=== PATIENT | female | born 1970 ===

== ENCOUNTER 2018-11-22 06:00 | Day surgery (SDC) | payer OTHER ==
--- NOTE | 2018-11-21 20:56 | Pre-Procedure Note/Attestation ---
Pre-Procedure Note/Attestation Complete Prior to Procedure Planned Procedure: not applicable Procedure Narrative: Open Reduction Internal Fixation nasal fracture Indications for Procedure Pre-Operative Diagnosis: Nasal fracture Attestation I attest that I discussed the nature of the procedure; its benefits; risks and complications; and alternatives (and the risks and benefits of such alternatives ), prior to the procedure, with the patient (or the patient's legal reimbursement representative). I attest that, if there was a reasonable possibility of needing a blood transfusion, the patient (or the patient's legal reimbursement representative) was given the [facility] standardized written summary, pursuant to the [place] Blood Safety Act ([place] Health and Safety Code # 1645, as amended). I attest that I re-evaluated the patient just prior to the surgery and that there has been no change in the patient's H&P. EKG, CXR Yusef Morrow MD Nov 21, 2018 20:56
--- NOTE | 2018-11-21 20:57 | Discharge Instructions ---
Discharge Instructions Discharge Instructions Follow up with: next week-pthas appt already Diet: regular Resume Normal Activity?: No Activity: light activity Pneumonia Vaccine: pt refused vaccine Influenza Vaccine (Jul to Dec): pt refused vaccine Follow Up Orders Pt has printed instructions as well as post op meds. Return to Work/School on: Dec 05, 2018 For Surgical Patients Dressing Care: may change For Congestive Heart Failure Reminder Report to your physician any weight gain of 5 pounds or more in one week. Yusef Morrow MD Nov 21, 2018 20:57
--- NOTE | 2018-11-21 21:21 | History & Physical ---
History of Present Illness General Date patient seen: Nov 08, 2018 Time patient seen: 11:00 Present Illness Allergies: Coded Allergies: SULFA (SULFONAMIDE ANTIBIOTICS) (Verified Allergy, Severe, 11/21/18) swollen eyes,itching Medication History Scheduled Cyclobenzaprine Hcl* (Flexeril*), 10 MG ORAL ELENA, (Reported) Fluticasone Propionate (Flonase Allergy Relief), 2 SPRAYS NS BEDT, (Reported) Ibuprofen* (Motrin*), 800 MG ORAL BID, (Reported) Patient History History Provided By: Patient Healthcare decision maker Resuscitation status Advanced Directive on File Past Medical/Surgical History Past Medical/Surgical History: (1) (2) Post traumatic stress disorder (3) Diabetes mellitus Social History Social History: (1) Diabetes mellitus Review of Systems Review of Symptoms General ROS: no weight loss or fever Psychological ROS: no depression or mood changes, no memory loss Ophthalmic ROS: no visual changes or eye irritation ENT ROS: no nasal congestion, hearing loss, dizziness, does have nasal deformity. Allergy and Immunology ROS: no allergic symptoms or urticaria Hematological and Lymphatic ROS: no swollen glands, unusual bleeding or bruising Endocrine ROS: no polyuria, polydipsia, weight changes, temperature intolerance Respiratory ROS: no cough, shortness of breath, or wheezing Cardiovascular ROS: no chest pain or dyspnea on exertion Gastrointestinal ROS: denies abdominal pain, bright red blood in stool. Musculoskeletal ROS: no myalgias or arthralgias Neurological ROS: no TIA or stroke symptoms Dermatological ROS: no new or changing skin lesions, rashes or pruritis Physical Exam Physical Exam General appearance: alert, cooperative, no distress, appears stated age Head: Normocephalic, without obvious abnormality, atraumatic Eyes: conjunctivae/corneas clear. PERRL, EOM's intact. Fundi benign Throat: Lips, mucosa, and tongue normal. Teeth and gums normal Neck: supple, symmetrical, trachea midline, no adenopathy, thyroid: not enlarged, symmetric, no tenderness/mass/nodules, no carotid bruit and no JVD Lungs: clear to auscultation bilaterally Heart: regular rate and rhythm, S1, S2 normal, no murmur, click, rub or gallop Abdomen: soft, non-tender. Bowel sounds normal. No masses, no organomegaly Extremities: extremities normal, atraumatic, no cyanosis or edema Pulses: 2+ and symmetric Skin: Skin color, texture, turgor normal. No rashes or lesions Neurologic: Grossly normal 69, 148 lbs, BP 120/80, 98.3, HR 76 Resp 13 attached by PMD-EKG, CXR, Labs- Height (Feet): 6 Height (Inches): 1 Weight (Pounds): 168 Medications Current Medications Medications (Trade) Dose Ordered Sig/Melissa Route PRN Reason Start Time Stop Time Status Last Admin Dose Admin Cefazolin Sodium 1 gm/Dextrose 55 ml @ 110 mls/hr ONCE ONCE IV 11/22/18 07:15 11/22/18 07:44 Dexamethasone Sodium Phosphate (Decadron 4mg/ml vial) 8 mg ONCE ONCE IVP 11/22/18 07:30 11/22/18 07:31 Assessment/Plan Problem List: (1) Nasal bone fracture ICD Codes: S02.2XXA - Fracture of nasal bones, initial encounter for closed fracture SNOMED: [id number] Status: stable Assessment/Plan Nasal fracture causing deformity Stable for surgery. [facility] Hospital declaration OUTPATIENT: level of care is warranted for this patient because patient is a 48 year old with woman who presents with a nasal deformity secondary to an incident at work. Plan of care/treatment include outpatient ORIF nasal fracture. Patient care is expected to be an outpatient. Disposition: Once the patient is stable to leave the hospital, I anticipate the patient will likely be discharged to the following environment:home. Estimated discharge date: 11/22/18 I spent 70 minutes on this patient's case, and 90 minutes was dedicated to counseling and/or care coordination. Measure #130 The provider has documented, updated, or reviewed the patients current medication list and has documented it in the patients note. MEDICAL COMPLEXITY High complexity medical decision making (need 2/3 categories) Problem - need 4 points Acute/new problem with new plan for workup (4 points, 1 max) Acute/new problem without additional workup (3 points, 1 max) Unstable chronic problem actively being managed (2 point each, 2 max) Stable chronic problem actively being managed (1 point each, 2 max) Self-limited/transient process (constipation, muscle ache, etc) (1 point each , 2 max) Data - need 4 points Reviewed labs/imaging studies (1 points, 2 max) Independent review of imaging (EKG, xrays, etc) (2 points, 2 max) Discussed case with consult/other MD/RN (2 points, 2 max) High Risk - qualify if have one of the following: Severe exacerbation of acute problem, acute mental status change, IV narcotics , monitoring drug levels (vancomycin, INR, tacrolimus etc) Yusef Morrow MD Nov 21, 2018 21:21
--- NOTE | 2018-11-21 21:24 | Brief Operative Note ---
Immediate Post Operative Note Operative Note Chief Complaint: nasal deformity Pre-op Diagnosis: Nasal fracture Procedure: ORIF Nasal Fracture Post-op Diagnosis: same as pre-op Surgeon: Yusef Morrow Skirt Maker: none Additional Surgeons: none Anesthesiologist: Maria E Anesthesia: general Specimen: none Complications: none Condition: stable Fluids: D5LR Estimated Blood Loss: volume - 25 cc Drains: none Packing: Stamberber nasal gel Implant(s) used?: No Yusef Morrow MD Nov 21, 2018 21:24
[2018-11-22] VITALS (12 sets, daily range): BP systolic 100–123; BP diastolic 66–84
[~2018-11-22] VITALS: Ht 149.9 cm; Wt 69.9 kg
[~2018-11-22 06:00] MED LIST: CYCLOBENZAPRINE10 MG ORAL; FLONASE ALLERG9.9 ML NS; IBUPROFEN600 MG ORAL
--- NOTE | 2018-11-22 06:45 | NUR ---
PT HAS A BANDAID ON RIGHT FOURTH FINGER DUE TO BROKEN NAIL ACCORDING TO PATIENT.
[2018-11-22] MEDS ORDERED: Lidocaine 1% 10mg/ml/Epi 0.005mg/ml 30ml vial INJ ONE (07:04)
[2018-11-22] MEDS ORDERED: Bupivacaine w/Epi 0.5% 30ml Vial INJ ONE (07:04)
[2018-11-22] MEDS ORDERED: Cocaine HCl 4% 4ml vial TOPIC ONE (07:04)
[2018-11-22] MEDS ORDERED: ceFAZolin sod 1 GM in D5W 55 ML IV ONE (07:15)
[2018-11-22] MEDS ORDERED: LR 1000ml 1,000 ML IVLG SCH (07:18)
--- NOTE | 2018-11-22 07:28 | Anethesia Preoperative Eval ---
Anesthesia Pre-op PMH/ROS General Date of Evaluation: Nov 22, 2018 Time of Evaluation: 07:24 Anesthesiologist: Dudley ASA Score: ASA 3 Mallampati Score Class I : Soft palate, uvula, fauces, pillars visible Class II: Soft palate, uvula, fauces visible Class III: Soft palate, base of uvula visible Class IV: Only hard plate visible Mallampati Classification: Class II Surgeon: Cristhian Diagnosis: Nasal Fracture Surgical Procedure: ORIF Nasal Fracture Anesthesia History: none Family History: no anesthesia problems Allergies: Coded Allergies: SULFA (SULFONAMIDE ANTIBIOTICS) (Verified Allergy, Severe, 11/21/18) swollen eyes,itching Medications: see eMAR Patient NPO?: Yes Past Medical History Cardiovascular: Reports: HTN Neurologic/Psychiatric: Reports: depression/anxiety, other - Migranes Endocrine: Reports: DM Other: obesity - BMI 33 PSxH Narrative: DORIS Anesthesia Pre-op Phys. Exam Physician Exam Last Vital Signs Date Time Temp Pulse Resp B/P (MAP) Pulse Ox O2 Delivery O2 Flow Rate FiO2 11/22/18 06:33 97.5 96 20 122/83 98 Room Air Constitutional: NAD Neurologic: CN 2-12 intact Cardiovascular: RRR Respiratory: CTA Gastrointestinal: S/NT/ND Airway Exam Mallampati Score: Class II MO: limited ROM: limited Teeth: missing, intact Anesthesia Pre-op A/P Risk Assessment & Plan Assessment: ASA 3 Plan: GA, SED, GlideScope Go Status Change Before Surgery: No Pre-Antibiotics Dru Gram Ancef IV Given Within 1 Hr of Incision: Yes Time Given: 07:41 eHma Sanderson MD Nov 22, 2018 07:28
[2018-11-22] MEDS ORDERED: fentaNYL 100 mcg/2 mL IV PRN (07:30)
[2018-11-22] MEDS ORDERED: NS Irrig 1000ml ONE (07:30)
[2018-11-22] MEDS ORDERED: Atropine Sulfate 0.4mg/ml inj IVP PRN (07:30)
[2018-11-22] MEDS ORDERED: Hydromorphone 0.5mg/0.5ml inj IVP PRN (07:30)
[2018-11-22] MEDS ORDERED: HYDROcodone/Acetamin 7.5/325 tab ORAL PRN (07:30)
[2018-11-22] MEDS ORDERED: Midazolam 2mg/2ml Inj IVP PRN (07:30)
[2018-11-22] MEDS ORDERED: LORazepam Inj 2mg/ml 1ml IV PRN (07:30)
[2018-11-22] MEDS ORDERED: Propofol 1,000mg/ 100ml btl IV ONE (07:30)
[2018-11-22] MEDS ORDERED: Dexamethasone 4mg/ml vial IVP ONE (07:30)
[2018-11-22] MEDS ORDERED: Norco 5mg/325mg tab ORAL PRN ×2 (07:30→09:00)
[2018-11-22] MEDS ORDERED: Lidocaine 1% Plain 30 ml INJ ONE (07:30)
[2018-11-22] MEDS ORDERED: Acetaminophen (Non formulary) 100 ML IV ONE (07:30)
[2018-11-22] MEDS ORDERED: Ketorolac 30mg Inj IV PRN ×2 (07:30)
[2018-11-22] MEDS ORDERED: oxyCODONE HCL/Acetaminophen 5/325mg ORAL PRN (07:30)
[2018-11-22] MEDS ORDERED: Meperidine 50mg/ml Inj(FOR RIGORS ONLY) IVP PRN (07:30)
[2018-11-22] MEDS ORDERED: Metoclopramide 10mg/2ml Inj IVP PRN ×2 (07:30→09:00)
[2018-11-22] MEDS ORDERED: DiphenhydrAMINE 50mg/ml Inj IVP PRN (07:30)
[2018-11-22] MEDS ORDERED: Sterile Water Irrig 1000ml IRRIG ONE (07:30)
[2018-11-22] MEDS ORDERED: Lidocaine 1% MPF 10mg/ml 5ml ONE (07:33)
[2018-11-22] MEDS ORDERED: Sodium Chloride 10ml vial INJ ONE (07:33)
[2018-11-22] MEDS ORDERED: fentaNYL 100 mcg/2 mL IV ONE (07:34)
[2018-11-22] MEDS ORDERED: Ketamine 500mg Inj ONE (07:34)
[2018-11-22] MEDS ORDERED: Metoprolol 5mg/5ml Inj ONE (07:58)
--- NOTE | 2018-11-22 08:08 | Immediate Post-Op Evaluation ---
Immediate Post-Op Evalulation Immediate Post-Op Evalulation Procedure: ORIF Nasal Fracture Date of Evaluation: Nov 22, 2018 Time of Evaluation: 08:55 IV Fluids: 500 LR Blood Products: 0 Estimated Blood Loss: 25 Urinary Output: 0 Blood Pressure Systolic: 113 Blood Pressure Diastolic: 64 Pulse Rate: 88 Respiratory Rate: 16 O2 Sat by Pulse Oximetry: 93 Temperature (Fahrenheit): 97.6 Pain Score (1-10): 2 Nausea: No Vomiting: No Complications 0 Patient Status: awake, reacts, patent, extubated, none Hydration Status: adequate Dru Gram Ancef IV Given Within 1 Hr of Incision: Yes Time Given: 07:41 Hema Sanderson MD Nov 22, 2018 08:08
[2018-11-22] MEDS ORDERED: Glycopyrrolate 0.2mg/ml 1ml Vial ONE (08:11)
[2018-11-22] MEDS ORDERED: Neostigmine 1mg/ml 10ml Inj ONE (08:11)
[2018-11-22] MEDS ORDERED: Naloxone 0.4mg/ml Inj ONE (08:20)
--- NOTE | 2018-11-22 08:46 | 48 Hour Post Anesthesia Eval ---
Post Anesthesia Evaluation Procedure: ORIF Nasal Fracture Date of Evaluation: Nov 22, 2018 Time of Evaluation: 11:12 Blood Pressure Systolic: 146 0: 92 Pulse Rate: 89 Respiratory Rate: 18 Temperature (Fahrenheit): 97.6 O2 Sat by Pulse Oximetry: 96 Airway: patent Nausea: No Vomiting: No Pain Intensity: 2 Hydration Status: adequate Cardiopulmonary Status: Stable Mental Status/LOC: patient returned to baseline Follow-up Care/Observations: 0 Post-Anesthesia Complications: 0 Follow-up care needed: ready to discharge Hema Sanderson MD Nov 22, 2018 08:46
[2018-11-22] MEDS ORDERED: HYDROmorphone 1mg/ml Carpuject SUBQ PRN (09:00)
--- NOTE | 2018-11-22 10:45 | Operative Note - Dictated ---
DATE OF OPERATION: 11/22/2018 SURGEON: Yusef Morrow M.D. UTILITY GELATIN MAKER: None. ANESTHESIOLOGIST: Dr. Sanderson. ANESTHESIA: Oral endotracheal anesthesia as well as 15 mL, 50:50 mixture 1% lidocaine with 1:100,000 epinephrine and Sensorcaine 0.5% with 1:200,000 epinephrine. Additionally 4 mL of 4% topical cocaine were placed on pledgets, two on either nostril were accounted for and removed at the end of the case. INDICATION FOR SURGERY: The patient had a fractured nose with flattening of the nasal bone. PREOPERATIVE DIAGNOSIS: The patient had a fractured nose with flattening of the nasal bone. POSTOPERATIVE DIAGNOSIS: The patient had a fractured nose with flattening of the nasal bone. FINDINGS: The patient had a fractured nose with flattening of the nasal bone. PROCEDURE: Open reduction and internal fixation, nasal fracture. TECHNIQUE: The patient was prepped and draped in the usual manner. Time-out was performed. All agreed as the equipment and procedure to be done. Initially, I injected the aforementioned lidocaine, Marcaine, and epinephrine mixture and place two nasal pledgets in either nostril. I then proceeded to make between the cartilage and stab incision in the lateral inferior nares. I then used an elevator to elevate the periosteum and perichondrium over the nasal bone. Then, using a straight guarded osteotome, I made a medial osteotomy and a short partial mid osteotomy on either side. I then used the lower incision to make a low lateral osteotomy. This was done bilaterally. Also done with a straight guarded osteotome. I used an Mak forceps to make sure the bone was loose, there was no greenstick fracture on either side. I then placed the nose back in normal anatomic position. Skin prep and then tape placed over the nose as well as a cast. Inside of the nose one syringe full of Stammberger nasal gel between the two nares. The patient was extubated, were alert and stable, breathing on her own prior to transfer to the recovery room. ESTIMATED BLOOD LOSS: 50 mL. COUNTS: None. DRAINS: None. Mustache dressing was placed. Yusef Morrow M.D. DR: JOHN JOB#: [id number] CC:
== END 2018-11-22 10:45 | disposition home or self-care (01) ==
LOC: SUR 06:00
DX: S02.2XXA Fracture of nasal bones, initial encounter for closed fracture (principal); E11.9 Type 2 diabetes mellitus without complications; I10 Essential (primary) hypertension; F32.9 Major depressive disorder, single episode, unspecified; F41.9 Anxiety disorder, unspecified; F43.10 Post-traumatic stress disorder, unspecified; E66.9 Obesity, unspecified; Z68.33 Body mass index [BMI] 33.0-33.9, adult; G43.909 Migraine, unspecified, not intractable, without status migrainosus; Z90.710 Acquired absence of both cervix and uterus
CPT/HCPCS: 21330; 82962; J0690; J2001; J2250; J2310; J2405; J2704; J2710; J3010; J3490; 94003; 94150